=== PATIENT | female | born 1965 | race Caucasian/White ===

== ENCOUNTER → 2022-04-13 | Day surgery (SDC) | payer MEDICARE, MEDICAID ==
[~2022-04-13] VITALS: Ht 165.1 cm; Wt 112.5 kg
[~2022-04-13] MED LIST: ALLO100T PO; ALPR-339 PO; APIX5TAB PO; ASPI-986 PO; ATOR10TA MT; ATOR10TA69 PO; CLOP75TA33 PO; EZET-57 MT; FENTANYL CITRATE/PF 50MCG/ML 2ML VIAL ONE; FURO20TA4 PO; FURO80TA3 PO; IODIXANOL 320MG/ML 100 ML BOTTLE IV ONE; LACT10SO6 PO; LIDOCAINE HCL 2% JELLY 5ML ONE; LISI2.5T47 PO; METO-385 PO; METO25TA6 PO; MIDAZOLAM HCL 2 MG/2 ML VIAL ONE; PANT40SU PO; SACU1TAB4 MT; SPIR25TA6 PO; TETRACAINE/BENZOCAINE/BUTAMBEN 20 GM SPRAY MM ONE
== END | disposition home or self-care (01) ==
LOC: CCL 07:34
PROVIDERS: ATTEND Specialist
DX: I34.2 Nonrheumatic mitral (valve) stenosis (principal); I31.8 Other specified diseases of pericardium; Z79.899 Other long term (current) drug therapy; Z98.890 Other specified postprocedural states; Z20.822 Contact with and (suspected) exposure to COVID-19
CPT/HCPCS: 87426; 93312; C9803; J1644; J2250; J3010; Q9967